=== PATIENT | female | born 1975 | race African-American/Black ===

== ENCOUNTER 2016-05-29 11:51 | Observation (INO) | payer SELFPAY ==
[~2016-05-29] VITALS: Ht 165.1 cm; Wt 81.0 kg
[~2016-05-29 11:51] MED LIST: Coumadin,Jantoven PO; Lovenox SC; Norvasc PO; Topamax PO
[2016-05-29 13:31] LABS: HEMATOCRIT 42.3 % (36.0-46.0); MCH 32.7 PG (29.0-34.0); MCHC 33.1 G/DL (30.0-36.0); MCV 98.8 FL (83-99); PLATELET COUNT 299 K/uL (156-360); RBC DIS.WIDTH-CV 11.2 % (11.8-14.6); RBC DIS.WIDTH-SD 39.8 % (39-53); RED BLOOD COUNT 4.28 M/uL (3.80-5.20)
[2016-05-29 13:47] LABS: CHLORIDE 106 mEq/L (99-109); POTASSIUM 4.6 mEq/L (3.7-5.4); SODIUM 139 mEq/L (136-147)
[2016-05-29 13:49] LABS: GLUCOSE 91 mg/dL (70-99)
[2016-05-29 13:51] LABS: ANION GAP 12 MEQ/L (2-14)
[2016-05-29 13:53] LABS: GFR ESTIMATE (CALCULATED) > 59 mL/min/
[2016-05-29 13:54] LABS: UREA NITROGEN (BUN) 11 mg/dL (9-23)
[2016-05-29 13:57] LABS: TROP-I INTERPRETATION NEGATIVE; TROPONIN-I < 0.01 ng/mL (0.0-0.30)
[2016-05-29 14:04] LABS: D-DIMER ELISA 0.18 mg/L FEU (< 0.57)
[2016-05-29] MEDS ORDERED: ADVIL,NUPRIN,M200 MG PO (14:37)
[2016-05-29 16:41] LABS: HDL CHOLESTEROL 49 MG/DL (Desirable>=50); LDL CHOLESTEROL 98 mg/dL (Desirable<100); NON-HDL CHOLESTEROL 111 mg/dL (Desirable<160); TOTAL CHOLESTEROL 160 mg/dL (Desirable<200); TRIGLYCERIDES 65 MG/DL (Normal: <150)
[2016-05-29 17:03] VITALS: BP 136/80
[2016-05-29 19:00] VITALS: BP 136/84
[2016-05-29 19:51] LABS: TROP-I INTERPRETATION NEGATIVE; TROPONIN-I < 0.01 ng/mL (0.0-0.30)
[2016-05-29 23:18] VITALS: BP 150/83
[2016-05-30] VITALS: BP 116/68
[2016-05-30 00:50] LABS: TROP-I INTERPRETATION NEGATIVE; TROPONIN-I < 0.01 ng/mL (0.0-0.30)
[2016-05-30 04:00] VITALS: BP 117/53
[2016-05-30 06:44] LABS: HEMATOCRIT 38.3 % (36.0-46.0); MCH 32.8 PG (29.0-34.0); MCHC 32.9 G/DL (30.0-36.0); MCV 99.7 FL (83-99); MEAN PLAT.VOLUME 10.1 uM^3 (9.5-12.4); PLATELET COUNT 247 K/uL (156-360); RBC DIS.WIDTH-CV 11.3 % (11.8-14.6); RED BLOOD COUNT 3.84 M/uL (3.80-5.20); WHITE BLOOD COUNT 4.1 K/uL (4.1-10.2)
[2016-05-30 07:20] VITALS: BP 121/76
[2016-05-30 09:01] LABS: CHLORIDE 105 mEq/L (99-109); POTASSIUM 4.1 mEq/L (3.7-5.4); SODIUM 137 mEq/L (136-147)
[2016-05-30 09:02] LABS: GLUCOSE 83 mg/dL (70-99)
[2016-05-30 09:04] LABS: ANION GAP 9 MEQ/L (2-14)
[2016-05-30 09:06] LABS: GFR ESTIMATE (CALCULATED) > 59 mL/min/
[2016-05-30 09:07] LABS: UREA NITROGEN (BUN) 14 mg/dL (9-23)
[2016-05-30] MEDS ORDERED: LO-DOSE ASPIRIN81 M2 PO (12:13)
[2016-05-30] MEDS ORDERED: LISINOPRIL5 MG PO (12:13)
[2016-05-30 12:31] VITALS: BP 131/78
== END 2016-05-30 14:15 | disposition home or self-care (01) ==
LOC: EME 11:51 → EDOF 15:15 → 5WEST 16:30
PROVIDERS: Emergency Medicine; Physician Assistant
DX: R07.89 Other chest pain (principal); F43.20 Adjustment disorder, unspecified; R55 Syncope and collapse; I10 Essential (primary) hypertension; J32.0 Chronic maxillary sinusitis; D68.61 Antiphospholipid syndrome; G89.4 Chronic pain syndrome; M79.7 Fibromyalgia; K21.9 Gastro-esophageal reflux disease without esophagitis; G40.909 Epilepsy, unspecified, not intractable, without status epilepticus; Z86.711 Personal history of pulmonary embolism; Z86.73 Personal history of transient ischemic attack (TIA), and cerebral infarction without residual deficits
CPT/HCPCS: 70450; 71020; 78582; 80048; 80061; 83880; 84484; 85027; 85379; 85610; 93005; 99281; 99285; A9539; A9540; G0378; J1644